=== PATIENT | male | born 1990 | race Two or more races ===

== ENCOUNTER 2020-05-24 21:13 | Emergency (ER) | payer BC ==
[~2020-05-24] VITALS: Ht 180.3 cm; Wt 90.0 kg
[2020-05-24] MEDS ORDERED: TETRACAINE 0.5% OPHTH SOLUTION 4ML BOTTLE. OS ONE (22:00)
[2020-05-24] MEDS ORDERED: FLUORESCEIN OPHTH TEST STRIP. OS ONE (22:00)
[2020-05-24] MEDS ORDERED: CYCLOPENTOLATE 2% OPHTH SOLUTION 2ML BOTTLE. OS ONE (22:45)
[2020-05-24] MEDS ORDERED: HYDROcodone/APAP 5/325MG 1 TAB TABLET PO ONE (22:45)
[2020-05-24] MEDS ORDERED: TOBRAMYCIN 0.3% OPHTH SOLUTION 5ML BOTTLE. OS ONE (23:00)
--- NOTE | 2020-05-24 23:16 | ED.ADGEN ---
Past Medical History Past Medical History: Other Additional Past Medical Histor: CORNEAL TRANSPLANT Past Surgical History: Other Additional Past Surgical Histo: CORNEAL TRANSPLANT Smoking Status: Never Smoker Alcohol Use: Occasionally General Adult EDM: Chief Complaint: EYE PROBLEMS HPI: HPI: Patient is a 30 year old male coming in with pain and redness to his left eye. Complaining of photophobia and tearing, denies any drainage. Denies any injury to his eye, rubbing his eye, sick contacts. 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 Patient states he has been compliant with the steroid eyedrops. He does wear contacts but does not have any now. His operation was done in [place]. His he otherwise has been well. Review of Systems: Review of Systems: All other systems within normal limits except for as noted in the HPI Current Medications: Current Medications Medications (Trade) Dose Ordered Sig/Missy Start Time Stop Time Status Last Admin Dose Admin Acetaminophen/ Hydrocodone Bitart (Lortab 5/325) 1 tab 1X ONCE 05/24/20 22:45 05/24/20 22:46 DC 05/24/20 22:34 1 TAB Cyclopentolate HCl (Cyclogyl 2%) 1 drop 1X ONCE 05/24/20 22:45 05/24/20 22:46 DC Fluorescein Sodium (Ful-Roseanne) 1 strip 1X ONCE 05/24/20 22:00 05/24/20 22:01 DC 05/24/20 21:54 1 STRIP Tetracaine HCl (Tetracaine) 1 drop 1X ONCE 05/24/20 22:00 05/24/20 22:01 DC 05/24/20 21:54 1 DROP Tobramycin Sulfate (Tobrex Ophth Soln) 1 drop 1X ONCE 05/24/20 23:00 05/24/20 23:01 DC Allergies: Allergies: Allergies Coded Allergies Type Severity Reaction Last Updated Verified No Known Drug Allergies 05/24/20 No Physical Exam: PE: Constitutional: Well developed, well nourished, no acute distress, non-toxic appearance. [] HENT: Normocephalic, atraumatic, bilateral external ears normal, nose normal. [] Eyes: Injection of the conjunctiva with chemosis, extraocular movements intact, intraocular pressure: OD 18, OS 22, viewed with fluorescein and Wood's lamp, calcification on the rim of cornea, suture at 3 o'clock position, punctate areas of fluorescein uptake but ill-defined [] Neck: No rigidity, supple, no stridor. [] Cardiovascular: Regular rate and rhythm, brisk cap refill [] Lungs & Thorax: Non labored symmetric respirations, no tachypnea or respiratory distress [] Abdomen: Soft, nondistended. Skin: Warm, dry, no erythema, no rash. [] Back: No tenderness, no CVA tenderness. [] Extremities: No deformities, range of motion grossly intact, no lower extremity edema [] Neurologic: Alert and oriented X 3, no focal deficits noted. [] Psychologic: Affect normal, judgement normal, mood normal. [] Current Patient Data: Vital Signs: Vital Signs Date Time Temp Pulse Resp B/P (MAP) Pulse Ox O2 Delivery O2 Flow Rate FiO2 05/24/20 22:34 24 98 Room Air 05/24/20 21:25 98.7 100 156/99 (118) 98.7 EKG: EKG: [] Heart Score: Risk Factors: Risk Factors: DM, Current or recent (<one month) smoker, HTN, HLP, family history of CAD, obesity. Risk Scores: Score 0 - 3: 2.5% MACE over next 6 weeks - Discharge Home Score 4 - 6: 20.3% MACE over next 6 weeks - Admit for Clinical Observation Score 7 - 10: 72.7% MACE over next 6 weeks - Early Invasive Strategies Radiology/Procedures: Radiology/Procedures: [] Course & Med Decision Making: Course & Med Decision Making Exam limited due to slit-lamp bulb not working. Pain not relieved with tetracaine. Concern for graft rejection, infection, uveitis. Discussed with ophthalmology, Dr. Arce, who will see patient tomorrow morning. Patient given tobramycin and cyclopentolate in the emergency department and sent home with instructions on how to use. [] Dragon Disclaimer: Dragon Disclaimer: This electronic medical record was generated, in whole or in part, using a voice recognition dictation system. Departure Departure Impression: Primary Impression: Conjunctivitis Disposition: ADMITTED INPT THIS HOSP Condition: STABLE Referrals: NO PCP (PCP) Additional Instructions: Follow-up with Dr. Dorian Arce tomorrow morning, call the office at [phone] for an appointment 29 and noon. [facility] [address] [place] Use eyedrops Tobramycin (antibiotic) use 1 drop every 4 hours Cyclopentolate (for eye pain) May use 1 to 2 drops every 10 minutes as needed for pain VIRGIE ARENAS MD May 24, 2020 23:16
[2020-05-24 23:40] VITALS: BP 140/88
== END 2020-05-24 23:42 | disposition admitted as inpatient to this hospital (09) ==
LOC: ER 21:13
DX: H10.9 Unspecified conjunctivitis (principal); H53.142 Visual discomfort, left eye; Z98.890 Other specified postprocedural states
CPT/HCPCS: 99285